=== PATIENT | male | born 1950 | race Caucasian/White ===

== ENCOUNTER 2021-06-12 13:52 | Inpatient (IN) | payer MEDICARE, OTHER ==
[2021-06-12] MEDS ORDERED: Sodium Chloride 0.9% 1,000 ML IV ONE (16:48)
[2021-06-12] MEDS ORDERED: Ketorolac 30 MG/ML SDV IVPUSH ONE (16:49)
[2021-06-12] MEDS ORDERED: Acetaminophen 500 MG Tab PO ONE (16:49)
[2021-06-12 17:59] LABS: BLOOD UREA NITROGEN,BUN 13 mg/dL (7.0-18.0); CARBON DIOXIDE,CO2 26.7 mmol/L (21.0-32.0); CHLORIDE,CL 100 mmol/L (98-107); GLUCOSE RANDOM 125 mg/dL (74-106); POTASSIUM,K 3.5 mmol/L (3.5-5.1); SODIUM,NA 137 mmol/L (136-148)
--- NOTE | 2021-06-12 18:15 | PCM.EKG ---
#1 Interpretation EKG Interpretation Comments: EKG done 06/12/2021 at 6:07 PM shows a sinus rhythm with a heart rate of 79 a MT of 177 QT of 505 ms and a QRS axis of 88. There is a prolonged QT interval with borderline right axis deviation and possible left atrial enlargement. There is no prior for comparison. Impression no obvious acute injury
[2021-06-12 18:28] LABS: CORONAVIRUS COVID-19 NAA POSITIVE (NEGATIVE); INFLUENZA A NAA NEGATIVE (NEGATIVE); INFLUENZA B NAA NEGATIVE (NEGATIVE)
[2021-06-12] MEDS ORDERED: Iopamidol 755 MG/ML 500 ML Multipack Bottle IVPUSH STA (18:43)
--- NOTE | 2021-06-12 19:27 | CT ---
INDICATION: Hypoxia, 3 weeks post COVID. TECHNIQUE: IV contrast-enhanced CT chest, pulmonary embolism protocol. 100 mL [id number] injected. FINDINGS: There is a small amount of pulmonary embolus in a few segmental and subsegmental pulmonary arteries in the right upper lobe. The RV/LV ratio is normal. Fairly extensive, peripheral predominant area irregular areas of consolidation and to lesser degree ground-glass compatible with COVID-19 pneumonia. Mild bilateral hilar and mediastinal adenopathy is likely reactive. Trace bilateral pleural effusions. IMPRESSION: 1. Small volume right upper lobe pulmonary emboli. No evidence for right heart strain. 2. Fairly extensive COVID-19 pneumonia. Findings called to the ED at 7:25 p.m. on 06/12/2021. Please note that all CT scans at this facility use dose modulation, iterative reconstruction, and/or weight-based dosing when appropriate to reduce radiation dose to as low as reasonably achievable. Dictated by Petr Lee MD @ 06/12/2021 7:25:45 PM (Electronically Signed)
[2021-06-12] MEDS ORDERED: Heparin Sodium 5,000 Units/ML Vial IVPUSH ONE (19:46)
[2021-06-12] MEDS ORDERED: Dexamethasone 10 MG/ML SDV IVPUSH ONE (20:12)
[2021-06-12] MEDS ORDERED: REMDESIVIR 200 MG in Sodium Chloride 0.9% 250 ML IV ONE (20:13)
[2021-06-12] MEDS ORDERED: Heparin Sodium/0.45% NaCl 500 ML IV SCH (20:15)
--- NOTE | 2021-06-12 20:15 | EDM.PDOC ---
ED HPI GENERAL MEDICAL PROBLEM - General Chief Complaint: Respiratory Problem Stated Complaint: COUGHING,LETHARGIC Time Seen by Provider: 06/12/21 14:00 Source of Information: Reports: Patient History Limitations: Reports: No Limitations - History of Present Illness INITIAL COMMENTS - FREE TEXT/NARRATIVE: HISTORY AND PHYSICAL: History of present illness: Patient is an otherwise healthy 70-year-old male who presents emergency room today with concern of possible COVID-19 infection and worsening shortness of breath over the past 3 to 4 days. Patient states that he has been sick with Covid-like symptoms for 3 to 4 weeks and states that he has not been getting better. Patient states now over the past several days, he has had worsening fatigue, decreased appetite, and states that he has been significantly more short of breath, especially with exertion. Patient states that he is having a harder time performing his ADLs as he states that he does become more short of breath with exertion and states that he has to stop frequently to sit down and take deep breaths. Patient is here with his at bedside who also agrees that she was concerned about patient more over the past 2 days than she has been since onset of symptoms. Patient states that he does not have any health history and is not on any prescription medications. Patient also notes loss of taste and smell. Patient states that he is not vaccinated for COVID-19. Patient denies fever, chills, chest pain,. Denies headache, neck stiff ness, change in vision, syncope, or near syncope. Denies vomiting, abdominal pain, diarrhea, constipation, or dysuria. Has not noted any blood in urine or stool. Review of systems: As per history of present illness and below otherwise all systems reviewed and negative. Past medical history: As per history of present illness and as reviewed below otherwise noncontributory. Surgical history: As per history of present illness and as reviewed below otherwise no ncontributory. Social history: See social history for further information Family history: As per history of present illness and as reviewed below otherwise noncontributory. Physical exam: General: Patient is alert, oriented, and in no acute distress. Patient sitting comfortably on exam table. Patient is hypoxic 85% on room air. Placed on 3 L nasal cannula and 92%. Otherwise, vitally stable and reviewed by me. HEENT: Atraumatic, normocephalic, pupils equal and reactive bilaterally, negative for conjunctival pallor or scleral icterus, mucous membranes moist, throat clear, neck supple, nontender, trachea midline. No drooling or trismus noted. No meningeal signs. No hot potato voice noted. Lungs: Dry cough on exam. Otherwise, clear to auscultation, breath sounds equal bilaterally, chest nontender. Heart: S1S2, regular rate and rhythm without overt murmur Abdomen: Soft, nondistended, nontender. Negative for masses or hepatosplenomegaly. Negative for costovertebral tenderness. Pelvis: Stable nontender. Genitourinary: Deferred. Rectal: Deferred. Skin: Intact, warm, dry. No lesions or rashes noted. Extremities: Atraumatic, negative for cords or calf pain. Neurovascular unremarkable. Neuro: Awake, alert, oriented. Cranial nerves II through XII unremarkable. Cerebellum unremarkable. Motor and sensory unremarkable throughout. Exam nonfocal. Medical Decision Making: Patient is an otherwise healthy 70-year-old male who presents emergency room today with concern of worsening shortness of breath and Covid symptoms for the past 3 weeks with worsening shortness of breath over the past 2 to 3 days. Upon arrival to the ED, patient is hypoxic 85% on room air. He was placed on 3 L nasal cannula and about 92 to 93%. He is otherwise vitally stable and breathing comfortably on exam. He does have a dry cough on exam, otherwise exam is unremarkable. At this time, will provide therapeutics, obtain cardiac evaluation, COVID-19 swab. Being that patient has been having COVID-19 symptoms for the past 3 to 4 weeks with now worsening shortness of breath over the past 2 days, will obtain angiography of chest for possible pulmonary embolism. Dr. Celis's dictation for specific EKG interpretation. Otherwise, normal sinus rhythm without STEMI. Patient does have prolonged QT interval with right axis deviation CBC does show thrombocytosis of 515, otherwise mild derangements of CBC unremarkable. CMP does show mild elevation of glucose at 125. AST and ALT mildly elevated at 81 and 93 respectively. Troponin negative. BNP within normal limits. COVID-19 is positive. Angiography of the chest shows small volume right upper lobe pulmonary embolism with no evidence for right heart strain. Fairly extensive COVID-19 pneumonia. Upon reevaluation of patient, he remains vitally stable on 3 L nasal cannula. I did call and speak to the hospitalist on-call, Dr. Camargo, and thoroughly discussed patient's case. Will admit inpatient to Dr. Camargo. Voices understanding and is agreeable to plan of care. Denies any further questions or concerns at this time. Diagnostics: EKG, CBC, CMP, angiography chest, troponin, COVID-19/influenza, BNP Therapeutics: Normal saline, Toradol, Tylenol, Lovenox, Decadron, remdesivir Impression: COVID-19 viral infection with hypoxia Pulmonary embolism, right upper lobe, subsegmental Plan: Admit to inpatient to Dr. Camargo, hospitalist Definitive disposition and diagnosis as appropriate pending reevaluation and review of above. - Related Data Allergies Allergy/AdvReac Type Severity Reaction Status Date / Time No Known Allergies Allergy Verified 06/12/21 22:08 Home Meds: Home Meds . [No Known Home Meds] 06/12/21 [History] Past Medical History - Past Health History Medical/Surgical History: Denies Medical/Surgical History Social & Family History - Tobacco Use Tobacco Use Status *Q: Former Tobacco User Used Tobacco, but Quit: Yes Month/Year Tobacco Last Used: 07/1989 - Caffeine Use Caffeine Use: Reports: Coffee - Alcohol Use Days Per Week of Alcohol Use: 1 Number of Drinks Per Day: 2 Total Drinks Per Week: 2 - Recreational Drug Use Recreational Drug Use: No ED ROS GENERAL - Review of Systems Review Of Systems: Comprehensive ROS is negative, except as noted in HPI. ED EXAM, GENERAL - Physical Exam Exam: See Below (see dictation) Course - Vital Signs Last Recorded V/S: Last Vital Signs Temp 97 F 06/12/21 18:27 Pulse 79 06/12/21 20:32 Resp 20 06/12/21 18:27 BP 125/67 06/12/21 20:32 Pulse Ox 93 L 06/12/21 20:32 - Orders/Labs/Meds Orders: Active Orders 24 hr Category Date Time Status Cardiac Monitoring [RC] . DIRECTED Care 06/12/21 16:48 Active BILIRUBIN DIRECT [CHEM] DAILY Lab 06/13/21 20:15 Ordered BILIRUBIN DIRECT [CHEM] DAILY Lab 06/14/21 20:15 Ordered BILIRUBIN DIRECT [CHEM] DAILY Lab 06/15/21 20:15 Ordered BILIRUBIN DIRECT [CHEM] DAILY Lab 06/16/21 20:15 Ordered COMPREHENSIVE METABOLIC PN,CMP [CHEM] DAILY Lab 06/13/21 20:15 Ordered COMPREHENSIVE METABOLIC PN,CMP [CHEM] DAILY Lab 06/14/21 20:15 Ordered COMPREHENSIVE METABOLIC PN,CMP [CHEM] DAILY Lab 06/15/21 20:15 Ordered COMPREHENSIVE METABOLIC PN,CMP [CHEM] DAILY Lab 06/16/21 20:15 Ordered Medication Orders Enoxaparin Sodium (Enoxaparin 100 Mg/1 Ml Syringe) 90 mg SUBCUT Q12HR JIMY Labs: Laboratory Tests 06/12/21 06/12/21 06/12/21 Range/Units 17:24 17:24 17:24 WBC 10.91 (4.0-11.0) K/uL RBC 4.43 L (4.50-5.90) M/uL Hgb 13.3 (13.0-17.0) g/dL Hct 38.4 (38.0-50.0) % MCV 86.7 (80.0-98.0) fL MCH 30.0 (27.0-32.0) pg MCHC 34.6 (31.0-37.0) g/dL RDW Std Deviation 41.5 (28.0-62.0) fl RDW Coeff of Aruna 13 (11.0-15.0) % Plt Count 515 H (150-400) K/uL MPV 10.00 (7.40-12.00) fL Neut % (Auto) 71.5 (48.0-80.0) % Lymph % (Auto) 13.7 L (16.0-40.0) % [place] % (Auto) 11.6 (0.0-15.0) % Eos % (Auto) 2.7 (0.0-7.0) % Baso % (Auto) 0.5 (0.0-1.5) % Neut # (Auto) 7.8 H (1.4-5.7) K/uL Lymph # (Auto) 1.5 (0.6-2.4) K/uL [place] # (Auto) 1.3 H (0.0-0.8) K/uL Eos # (Auto) 0.3 (0.0-0.7) K/uL Baso # (Auto) 0.1 (0.0-0.1) K/uL Nucleated RBC % 0.0 /100WBC Nucleated RBCs # 0 K/uL APTT (18.6-31.3) SEC Sodium 137 (136-148) mmol/L Potassium 3.5 (3.5-5.1) mmol/L Chloride 100 (98-107) mmol/L Carbon Dioxide 26.7 (21.0-32.0) mmol/L BUN 13 (7.0-18.0) mg/dL Creatinine 0.9 (0.8-1.3) mg/dL Est Cr Clr Drug Dosing 74.94 mL/min Estimated GFR (MDRD) > 60.0 ml/min Glucose 125 H (74-106) mg/dL Calcium 8.7 (8.5-10.1) mg/dL Total Bilirubin 0.9 (0.2-1.0) mg/dL AST 81 H (15-37) IU/L ALT 93 H (14-63) IU/L Alkaline Phosphatase 67 (46-116) U/L Troponin I < 0.050 (0.000-0.056) ng/mL B-Natriuretic Peptide 34 (<100) PG/ML Total Protein 7.4 (6.4-8.2) g/dL Albumin 2.1 L (3.4-5.0) g/dL Globulin 5.3 H (2.6-4.0) g/dL Albumin/Globulin Ratio 0.4 L (0.9-1.6) Influenza Type A RNA (NEGATIVE) Influenza Type B RNA (NEGATIVE) SARS-CoV-2 RNA (TIARRA) (NEGATIVE) 06/12/21 06/12/21 Range/Units 17:24 17:42 WBC (4.0-11.0) K/uL RBC (4.50-5.90) M/uL Hgb (13.0-17.0) g/dL Hct (38.0-50.0) % MCV (80.0-98.0) fL MCH (27.0-32.0) pg MCHC (31.0-37.0) g/dL RDW Std Deviation (28.0-62.0) fl RDW Coeff of Aruna (11.0-15.0) % Plt Count (150-400) K/uL MPV (7.40-12.00) fL Neut % (Auto) (48.0-80.0) % Lymph % (Auto) (16.0-40.0) % [place] % (Auto) (0.0-15.0) % Eos % (Auto) (0.0-7.0) % Baso % (Auto) (0.0-1.5) % Neut # (Auto) (1.4-5.7) K/uL Lymph # (Auto) (0.6-2.4) K/uL [place] # (Auto) (0.0-0.8) K/uL Eos # (Auto) (0.0-0.7) K/uL Baso # (Auto) (0.0-0.1) K/uL Nucleated RBC % /100WBC Nucleated RBCs # K/uL APTT 27.5 (18.6-31.3) SEC Sodium (136-148) mmol/L Potassium (3.5-5.1) mmol/L Chloride (98-107) mmol/L Carbon Dioxide (21.0-32.0) mmol/L BUN (7.0-18.0) mg/dL Creatinine (0.8-1.3) mg/dL Est Cr Clr Drug Dosing mL/min Estimated GFR (MDRD) ml/min Glucose (74-106) mg/dL Calcium (8.5-10.1) mg/dL Total Bilirubin (0.2-1.0) mg/dL AST (15-37) IU/L ALT (14-63) IU/L Alkaline Phosphatase (46-116) U/L Troponin I (0.000-0.056) ng/mL B-Natriuretic Peptide (<100) PG/ML Total Protein (6.4-8.2) g/dL Albumin (3.4-5.0) g/dL Globulin (2.6-4.0) g/dL Albumin/Globulin Ratio (0.9-1.6) Influenza Type A RNA NEGATIVE (NEGATIVE) Influenza Type B RNA NEGATIVE (NEGATIVE) SARS-CoV-2 RNA (TIARRA) POSITIVE H (NEGATIVE) Meds: Medications Generic Name Dose Route Start Last Admin Trade Name Freq PRN Reason Stop Dose Admin Enoxaparin Sodium 90 mg 06/12/21 21:00 Enoxaparin 100 Mg/1 Ml Syringe SUBCUT Q12HR JIMY Discontinued Medications Generic Name Dose Route Start Last Admin Trade Name Brown PRN Reason Stop Dose Admin Acetaminophen 1,000 mg 06/12/21 16:49 06/12/21 18:02 Acetaminophen 500 Mg Tab PO 06/12/21 16:50 Not Given ONETIME ONE Dexamethasone 10 mg 06/12/21 20:12 06/12/21 20:21 Dexamethasone 10 Mg/Ml Sdv IVPUSH 06/12/21 20:13 10 mg ONETIME ONE Administration Enoxaparin Sodium 92 mg 06/12/21 20:19 06/12/21 20:29 Enoxaparin 100 Mg/1 Ml Syringe SUBCUT 06/12/21 20:20 92 mg ONETIME ONE Administration Heparin Sodium (Porcine) 5,000 units 06/12/21 19:46 Heparin Sodium 5,000 Units/Ml Vial IVPUSH 06/12/21 19:47 ONETIME ONE Protocol Sodium Chloride 1,000 mls @ 999 mls/hr 06/12/21 16:48 06/12/21 17:33 Normal Saline IV 06/12/21 17:48 999 mls/hr BOLUS ONE Administration Heparin Sodium/Sodium Chloride 500 mls @ 25.655 mls/hr 06/12/21 20:15 Heparin 25,000 Units In 1/2 Ns 500 Ml IV TITRATE JIMY Protocol 14 UNITS/KG/HR Remdesivir 200 mg/ Sodium 250 mls @ 250 mls/hr 06/12/21 20:13 06/12/21 21:21 Chloride IV 06/12/21 20:14 250 mls/hr ONETIME ONE Administration Iopamidol 100 ml 06/12/21 18:43 06/12/21 18:44 Iopamidol 755 Mg/Ml 500 Ml Multipack Bottle IVPUSH 06/12/21 18:44 100 ml ONETIME STA Administration Ketorolac Tromethamine 30 mg 06/12/21 16:49 06/12/21 18:02 Ketorolac 30 Mg/Ml Sdv IVPUSH 06/12/21 16:50 Not Given ONETIME ONE Departure - Departure Time of Disposition: 22:16 Disposition: Admitted As Inpatient 67 Clinical Impression: COVID-19 virus infection, Hypoxia Pulmonary embolism Qualifiers: Pulmonary embolism type: unspecified Chronicity: acute Acute cor pulmonale presence: without acute cor pulmonale Qualified Code(s): I26.99 - Other pulmonary embolism without acute cor pulmonale - Discharge Information Sepsis Event Note (ED) - Focused Exam Vital Signs: Vital Signs Temp Temp Pulse Resp BP Pulse Ox 06/12/21 18:27 97 F 85 20 133/80 95 06/12/21 18:02 97.2 F 06/12/21 17:37 97.2 F 06/12/21 16:59 86 122/71 93 L 06/12/21 14:52 96.1 F L 87 26 H 120/67 - My Orders Last 24 Hours: My Active Orders 06/12/21 16:48 Cardiac Monitoring [RC] . DIRECTED 06/13/21 20:15 BILIRUBIN DIRECT [CHEM] DAILY COMPREHENSIVE METABOLIC PN,CMP [CHEM] DAILY 06/14/21 20:15 BILIRUBIN DIRECT [CHEM] DAILY COMPREHENSIVE METABOLIC PN,CMP [CHEM] DAILY 06/15/21 20:15 BILIRUBIN DIRECT [CHEM] DAILY COMPREHENSIVE METABOLIC PN,CMP [CHEM] DAILY 06/16/21 20:15 BILIRUBIN DIRECT [CHEM] DAILY COMPREHENSIVE METABOLIC PN,CMP [CHEM] DAILY - Assessment/Plan Last 24 Hours: My Active Orders 06/12/21 16:48 Cardiac Monitoring [RC] . DIRECTED 06/13/21 20:15 BILIRUBIN DIRECT [CHEM] DAILY COMPREHENSIVE METABOLIC PN,CMP [CHEM] DAILY 06/14/21 20:15 BILIRUBIN DIRECT [CHEM] DAILY COMPREHENSIVE METABOLIC PN,CMP [CHEM] DAILY 06/15/21 20:15 BILIRUBIN DIRECT [CHEM] DAILY COMPREHENSIVE METABOLIC PN,CMP [CHEM] DAILY 06/16/21 20:15 BILIRUBIN DIRECT [CHEM] DAILY COMPREHENSIVE METABOLIC PN,CMP [CHEM] DAILY
[2021-06-12] MEDS ORDERED: Enoxaparin 100 MG/1 ML Syringe SUBCUT ONE (20:19)
[2021-06-12] MEDS ORDERED: Enoxaparin 100 MG/1 ML Syringe SUBCUT SCH (21:00)
--- NOTE | 2021-06-12 23:57 | PCM.HP.2 ---
H&P History of Present Illness - General Date of Service: 06/12/21 Admit Problem/Dx: Admission Diagnosis/Problem Admission Diagnosis/Problem Respiratory failure with hypoxia and hypercapnia - History of Present Illness Initial Comments - Free Text/Narative: Patient is a 70-year-old obese male with a h/o JUDAH who presented to the emergency room today with concern of possible COVID-19 infection and worsening shortness of breath over the past 3 to 4 days. Patient states that he has been sick with flu like symptoms for at least 16 days. He states that he has not been getting better. Patient states now over the past several days, he has had worsening fatigue, decreased appetite, and states that he has been significantly more short of breath, especially with exertion. Patient states that he is having a harder time performing his ADLs as he states that he does become more short of breath with exertion and states that he has to stop frequently to sit down and take deep breaths. He also complains of a nagging dry cough. He frequently goes into coughing spells and these tend to last several minutes. He has had no fevers or chills. No known sick contacts. His has no symptoms either. Pt is unvaccinated. - Related Data Allergies/Adverse Reactions: Allergies Allergy/AdvReac Type Severity Reaction Status Date / Time No Known Allergies Allergy Verified 06/12/21 22:08 Home Medications: Home Meds . [No Known Home Meds] 06/12/21 [History] Past Medical History - Past Health History Medical/Surgical History: Denies Medical/Surgical History HEENT History: Reports: Impaired Vision Respiratory History: Reports: Sleep Apnea - Past Surgical History HEENT Surgical History: Reports: Oral Surgery GI Surgical History: Reports: Colonoscopy Social & Family History - Tobacco Use Tobacco Use Status *Q: Former Tobacco User Used Tobacco, but Quit: Yes Month/Year Tobacco Last Used: 1989 Second Hand Smoke Exposure: No - Caffeine Use Caffeine Use: Reports: Coffee - Alcohol Use Days Per Week of Alcohol Use: 1 Number of Drinks Per Day: 2 Total Drinks Per Week: 2 - Recreational Drug Use Recreational Drug Use: No H&P Review of Systems - Review of Systems: Review Of Systems: See Below Exam - Exam Exam: See Below - Vital Signs Vital Signs: Last Vital Signs Temp 96.8 F L 06/12/21 22:09 Pulse 84 06/12/21 22:09 Resp 20 06/12/21 22:09 BP 158/81 H 06/12/21 22:09 Pulse Ox 91 L 06/12/21 22:09 Weight: 203 lb 12.8 oz - Exam Physical Exam Comments:: General: Obese elderly male. In no distress CVS: S1S2 appreciated. RRR lungs: Diminished bilaterally with no rales or wheezes. pa: soft, obese, non tender. Bowel sounds present ext: no clubbing, cyanosis or edema neuro: no focal deficits. - Patient Data Lab Results Last 24 hrs: Laboratory Results - last 24 hr 06/12/21 06/12/21 06/12/21 Range/Units 17:24 17:24 17:24 WBC 10.91 (4.0-11.0) K/uL RBC 4.43 L (4.50-5.90) M/uL Hgb 13.3 (13.0-17.0) g/dL Hct 38.4 (38.0-50.0) % MCV 86.7 (80.0-98.0) fL MCH 30.0 (27.0-32.0) pg MCHC 34.6 (31.0-37.0) g/dL RDW Std Deviation 41.5 (28.0-62.0) fl RDW Coeff of Aruna 13 (11.0-15.0) % Plt Count 515 H (150-400) K/uL MPV 10.00 (7.40-12.00) fL Neut % (Auto) 71.5 (48.0-80.0) % Lymph % (Auto) 13.7 L (16.0-40.0) % [place] % (Auto) 11.6 (0.0-15.0) % Eos % (Auto) 2.7 (0.0-7.0) % Baso % (Auto) 0.5 (0.0-1.5) % Neut # (Auto) 7.8 H (1.4-5.7) K/uL Lymph # (Auto) 1.5 (0.6-2.4) K/uL [place] # (Auto) 1.3 H (0.0-0.8) K/uL Eos # (Auto) 0.3 (0.0-0.7) K/uL Baso # (Auto) 0.1 (0.0-0.1) K/uL Nucleated RBC % 0.0 /100WBC Nucleated RBCs # 0 K/uL APTT (18.6-31.3) SEC Sodium 137 (136-148) mmol/L Potassium 3.5 (3.5-5.1) mmol/L Chloride 100 (98-107) mmol/L Carbon Dioxide 26.7 (21.0-32.0) mmol/L BUN 13 (7.0-18.0) mg/dL Creatinine 0.9 (0.8-1.3) mg/dL Est Cr Clr Drug Dosing 74.94 mL/min Estimated GFR (MDRD) > 60.0 ml/min Glucose 125 H (74-106) mg/dL Calcium 8.7 (8.5-10.1) mg/dL Total Bilirubin 0.9 (0.2-1.0) mg/dL AST 81 H (15-37) IU/L ALT 93 H (14-63) IU/L Alkaline Phosphatase 67 (46-116) U/L Troponin I < 0.050 (0.000-0.056) ng/mL B-Natriuretic Peptide 34 (<100) PG/ML Total Protein 7.4 (6.4-8.2) g/dL Albumin 2.1 L (3.4-5.0) g/dL Globulin 5.3 H (2.6-4.0) g/dL Albumin/Globulin Ratio 0.4 L (0.9-1.6) Influenza Type A RNA (NEGATIVE) Influenza Type B RNA (NEGATIVE) SARS-CoV-2 RNA (TIARRA) (NEGATIVE) 06/12/21 06/12/21 Range/Units 17:24 17:42 WBC (4.0-11.0) K/uL RBC (4.50-5.90) M/uL Hgb (13.0-17.0) g/dL Hct (38.0-50.0) % MCV (80.0-98.0) fL MCH (27.0-32.0) pg MCHC (31.0-37.0) g/dL RDW Std Deviation (28.0-62.0) fl RDW Coeff of Aruna (11.0-15.0) % Plt Count (150-400) K/uL MPV (7.40-12.00) fL Neut % (Auto) (48.0-80.0) % Lymph % (Auto) (16.0-40.0) % [place] % (Auto) (0.0-15.0) % Eos % (Auto) (0.0-7.0) % Baso % (Auto) (0.0-1.5) % Neut # (Auto) (1.4-5.7) K/uL Lymph # (Auto) (0.6-2.4) K/uL [place] # (Auto) (0.0-0.8) K/uL Eos # (Auto) (0.0-0.7) K/uL Baso # (Auto) (0.0-0.1) K/uL Nucleated RBC % /100WBC Nucleated RBCs # K/uL APTT 27.5 (18.6-31.3) SEC Sodium (136-148) mmol/L Potassium (3.5-5.1) mmol/L Chloride (98-107) mmol/L Carbon Dioxide (21.0-32.0) mmol/L BUN (7.0-18.0) mg/dL Creatinine (0.8-1.3) mg/dL Est Cr Clr Drug Dosing mL/min Estimated GFR (MDRD) ml/min Glucose (74-106) mg/dL Calcium (8.5-10.1) mg/dL Total Bilirubin (0.2-1.0) mg/dL AST (15-37) IU/L ALT (14-63) IU/L Alkaline Phosphatase (46-116) U/L Troponin I (0.000-0.056) ng/mL B-Natriuretic Peptide (<100) PG/ML Total Protein (6.4-8.2) g/dL Albumin (3.4-5.0) g/dL Globulin (2.6-4.0) g/dL Albumin/Globulin Ratio (0.9-1.6) Influenza Type A RNA NEGATIVE (NEGATIVE) Influenza Type B RNA NEGATIVE (NEGATIVE) SARS-CoV-2 RNA (TIARRA) POSITIVE H (NEGATIVE) Result Diagrams: 06/13/21 05:53 06/13/21 05:53 Sepsis Event Note - Focused Exam Vital Signs: Vital Signs Temp Temp Pulse Resp BP Pulse Ox 06/12/21 22:09 96.8 F L 84 20 158/81 H 91 L 06/12/21 20:32 79 125/67 93 L 06/12/21 18:27 97 F 85 20 133/80 95 06/12/21 18:02 97.2 F 06/12/21 17:37 97.2 F 06/12/21 16:59 86 122/71 93 L 06/12/21 14:52 96.1 F L 87 26 H 120/67 - Problem List (1) Acute respiratory failure SNOMED Code(s): 52606477 ICD Code: J96.00 - ACUTE RESPIRATORY FAILURE, UNSP W HYPOXIA OR HYPERCAPNIA Status: Acute Current Visit: Yes (2) COVID-19 virus infection SNOMED Code(s): 088186759 ICD Code: U07.1 - COVID-19 Status: Acute Current Visit: Yes (3) Pulmonary embolism SNOMED Code(s): 65170862 ICD Code: I26.99 - OTHER PULMONARY EMBOLISM WITHOUT ACUTE COR PULMONALE Status: Acute Current Visit: Yes Qualifiers: Pulmonary embolism type: unspecified Chronicity: acute Acute cor pulmonale presence: without acute cor pulmonale Qualified Code(s): I26.99 - O ther pulmonary embolism without acute cor pulmonale (4) JUDAH on CPAP SNOMED Code(s): 83136418 ICD Code: G47.33 - OBSTRUCTIVE SLEEP APNEA (ADULT) (PEDIATRIC); Z99.89 - DEPENDENCE ON OTHER ENABLING MACHINES AND DEVICES Status: Acute Current Visit: Yes (5) Obesity (BMI 30.0-34.9) SNOMED Code(s): 764064327028543 ICD Code: E66.9 - OBESITY, UNSPECIFIED Status: Acute Current Visit: Yes Problem List Initiated/Reviewed/Updated: Yes Orders Last 24hrs: Active Orders 24 hr Category Date Time Status Admission Status [Patient Status] [ADT] Stat ADT 06/12/21 20:20 Active Patient Status Manage Transfer [TRANSFER] Routine ADT 06/12/21 20:38 Active Cardiac Monitoring [RC] . DIRECTED Care 06/12/21 16:48 Active Regular Diet [DIET] Diet 06/13/21 Breakfast Active BILIRUBIN DIRECT [CHEM] DAILY Lab 06/13/21 20:15 Ordered BILIRUBIN DIRECT [CHEM] DAILY Lab 06/14/21 20:15 Ordered BILIRUBIN DIRECT [CHEM] DAILY Lab 06/15/21 20:15 Ordered BILIRUBIN DIRECT [CHEM] DAILY Lab 06/16/21 20:15 Ordered COMPREHENSIVE METABOLIC PN,CMP [CHEM] DAILY Lab 06/13/21 20:15 Ordered COMPREHENSIVE METABOLIC PN,CMP [CHEM] DAILY Lab 06/14/21 20:15 Ordered COMPREHENSIVE METABOLIC PN,CMP [CHEM] DAILY Lab 06/15/21 20:15 Ordered COMPREHENSIVE METABOLIC PN,CMP [CHEM] DAILY Lab 06/16/21 20:15 Ordered Enoxaparin [Lovenox] Med 06/13/21 09:00 Active 90 mg SUBCUT Q12HR Resuscitation Status Routine Resus Stat 06/12/21 20:42 Ordered Medication Orders Enoxaparin Sodium (Enoxaparin 100 Mg/1 Ml Syringe) 90 mg SUBCUT Q12HR JIMY Acute respiratory failure due to Covid 19 pneumonia Admit to the medical floor Treat pt with Decadron x 10 days, duoneb, incentive spirometer, encourage proning. Will not give Remdesivir due the time between onset of symptoms to p resentation. anticoagulation oxygen supplementation Pulmonary embolism on lovenox 1 mg/kg SQ Q 12 JUDAH on CPAP at home Will have bring in his home CPAP device. Obesity Pt will need lifestyle modification changes after this acute hospitalization.
[2021-06-13] MEDS ORDERED: Albuterol 8 GM Inhaler INH PRN (07:12)
[2021-06-13 07:50] LABS: BLOOD UREA NITROGEN,BUN 13 mg/dL (7.0-18.0); CHLORIDE,CL 106 mmol/L (98-107); GLUCOSE RANDOM 179 mg/dL (74-106); POTASSIUM,K 4.8 mmol/L (3.5-5.1); SODIUM,NA 141 mmol/L (136-148)
[2021-06-13] MEDS: Enoxaparin 100 MG/1 ML Syringe SUBCUT SCH ×2 (08:08→20:32)
[2021-06-13] MEDS: Albuterol/Ipratropium 3.0-0.5 MG/3 ML Neb Soln NEB SCH ×4 (10:45→18:21)
--- NOTE | 2021-06-13 15:59 | PCM.PN ---
- General Info Date of Service: 06/13/21 Subjective Update: Pt feels a little better today but still weak. He is still requiring 10 L oxygen by NC to keeps his sats > 90% - Patient Data Vitals - Most Recent: Last Vital Signs Temp 96.8 F L 06/13/21 11:01 Pulse 88 06/13/21 11:01 Resp 20 06/13/21 11:01 BP 112/63 06/13/21 11:01 Pulse Ox 91 L 06/13/21 11:01 Weight - Most Recent: 203 lb 12.8 oz I&O - Last 24 Hours: Intake & Output 06/13/21 06/13/21 06/13/21 06:59 14:59 22:59 Intake Total 50 Output Total 1 Balance 49 Lab Results Last 24 Hours: Laboratory Results - last 24 hr 06/12/21 06/12/21 06/12/21 Range/Units 17:24 17:24 17:24 WBC 10.91 (4.0-11.0) K/uL RBC 4.43 L (4.50-5.90) M/uL Hgb 13.3 (13.0-17.0) g/dL Hct 38.4 (38.0-50.0) % MCV 86.7 (80.0-98.0) fL MCH 30.0 (27.0-32.0) pg MCHC 34.6 (31.0-37.0) g/dL RDW Std Deviation 41.5 (28.0-62.0) fl RDW Coeff of Aruna 13 (11.0-15.0) % Plt Count 515 H (150-400) K/uL MPV 10.00 (7.40-12.00) fL Neut % (Auto) 71.5 (48.0-80.0) % Lymph % (Auto) 13.7 L (16.0-40.0) % Coles % (Auto) 11.6 (0.0-15.0) % Eos % (Auto) 2.7 (0.0-7.0) % Baso % (Auto) 0.5 (0.0-1.5) % Neut # (Auto) 7.8 H (1.4-5.7) K/uL Lymph # (Auto) 1.5 (0.6-2.4) K/uL Coles # (Auto) 1.3 H (0.0-0.8) K/uL Eos # (Auto) 0.3 (0.0-0.7) K/uL Baso # (Auto) 0.1 (0.0-0.1) K/uL Add Manual Diff Neutrophils % (Manual) (48.0-80.0) % Lymphocytes % (Manual) (16.0-40.0) % Monocytes % (Manual) (0.0-15.0) % Eosinophils % (Manual) (0.0-7.0) % Nucleated RBC % 0.0 /100WBC Absolute Seg Neuts (1.4-5.7) Lymphocytes # (Manual) (0.6-2.4) Monocytes # (Manual) (0.0-0.8) Eosinophils # (Manual) (0.0-0.7) Nucleated RBCs # 0 K/uL APTT (18.6-31.3) SEC Sodium 137 (136-148) mmol/L Potassium 3.5 (3.5-5.1) mmol/L Chloride 100 (98-107) mmol/L Carbon Dioxide 26.7 (21.0-32.0) mmol/L BUN 13 (7.0-18.0) mg/dL Creatinine 0.9 (0.8-1.3) mg/dL Est Cr Clr Drug Dosing 74.94 mL/min Estimated GFR (MDRD) > 60.0 ml/min Glucose 125 H (74-106) mg/dL Calcium 8.7 (8.5-10.1) mg/dL Total Bilirubin 0.9 (0.2-1.0) mg/dL Direct Bilirubin (0.0-0.5) mg/dL AST 81 H (15-37) IU/L ALT 93 H (14-63) IU/L Alkaline Phosphatase 67 (46-116) U/L Troponin I < 0.050 (0.000-0.056) ng/mL C-Reactive Protein (0.00-0.90) mg/dL B-Natriuretic Peptide 34 (<100) PG/ML Total Protein 7.4 (6.4-8.2) g/dL Albumin 2.1 L (3.4-5.0) g/dL Globulin 5.3 H (2.6-4.0) g/dL Albumin/Globulin Ratio 0.4 L (0.9-1.6) Influenza Type A RNA (NEGATIVE) Influenza Type B RNA (NEGATIVE) SARS-CoV-2 RNA (TAIRRA) (NEGATIVE) 06/12/21 06/12/21 06/13/21 Range/Units 17:24 17:42 05:53 WBC 6.75 (4.0-11.0) K/uL RBC 4.26 L (4.50-5.90) M/uL Hgb 12.8 L (13.0-17.0) g/dL Hct 37.2 L (38.0-50.0) % MCV 87.3 (80.0-98.0) fL MCH 30.0 (27.0-32.0) pg MCHC 34.4 (31.0-37.0) g/dL RDW Std Deviation 41.8 (28.0-62.0) fl RDW Coeff of Aruna 13 (11.0-15.0) % Plt Count 562 H (150-400) K/uL MPV 10.30 (7.40-12.00) fL Neut % (Auto) (48.0-80.0) % Lymph % (Auto) (16.0-40.0) % Coles % (Auto) (0.0-15.0) % Eos % (Auto) (0.0-7.0) % Baso % (Auto) (0.0-1.5) % Neut # (Auto) (1.4-5.7) K/uL Lymph # (Auto) (0.6-2.4) K/uL Coles # (Auto) (0.0-0.8) K/uL Eos # (Auto) (0.0-0.7) K/uL Baso # (Auto) (0.0-0.1) K/uL Add Manual Diff YES Neutrophils % (Manual) 75 (48.0-80.0) % Lymphocytes % (Manual) 19 (16.0-40.0) % Monocytes % (Manual) 5 (0.0-15.0) % Eosinophils % (Manual) 1 (0.0-7.0) % Nucleated RBC % 0.0 /100WBC Absolute Seg Neuts 5.1 (1.4-5.7) Lymphocytes # (Manual) 1.3 (0.6-2.4) Monocytes # (Manual) 0.3 (0.0-0.8) Eosinophils # (Manual) 0.1 (0.0-0.7) Nucleated RBCs # 0 K/uL APTT 27.5 (18.6-31.3) SEC Sodium (136-148) mmol/L Potassium (3.5-5.1) mmol/L Chloride (98-107) mmol/L Carbon Dioxide (21.0-32.0) mmol/L BUN (7.0-18.0) mg/dL Creatinine (0.8-1.3) mg/dL Est Cr Clr Drug Dosing mL/min Estimated GFR (MDRD) ml/min Glucose (74-106) mg/dL Calcium (8.5-10.1) mg/dL Total Bilirubin (0.2-1.0) mg/dL Direct Bilirubin (0.0-0.5) mg/dL AST (15-37) IU/L ALT (14-63) IU/L Alkaline Phosphatase (46-116) U/L Troponin I (0.000-0.056) ng/mL C-Reactive Protein (0.00-0.90) mg/dL B-Natriuretic Peptide (<100) PG/ML Total Protein (6.4-8.2) g/dL Albumin (3.4-5.0) g/dL Globulin (2.6-4.0) g/dL Albumin/Globulin Ratio (0.9-1.6) Influenza Type A RNA NEGATIVE (NEGATIVE) Influenza Type B RNA NEGATIVE (NEGATIVE) SARS-CoV-2 RNA (TIARRA) POSITIVE H (NEGATIVE) 06/13/21 06/13/21 Range/Units 05:53 05:53 WBC (4.0-11.0) K/uL RBC (4.50-5.90) M/uL Hgb (13.0-17.0) g/dL Hct (38.0-50.0) % MCV (80.0-98.0) fL MCH (27.0-32.0) pg MCHC (31.0-37.0) g/dL RDW Std Deviation (28.0-62.0) fl RDW Coeff of Aruna (11.0-15.0) % Plt Count (150-400) K/uL MPV (7.40-12.00) fL Neut % (Auto) (48.0-80.0) % Lymph % (Auto) (16.0-40.0) % Coles % (Auto) (0.0-15.0) % Eos % (Auto) (0.0-7.0) % Baso % (Auto) (0.0-1.5) % Neut # (Auto) (1.4-5.7) K/uL Lymph # (Auto) (0.6-2.4) K/uL Coles # (Auto) (0.0-0.8) K/uL Eos # (Auto) (0.0-0.7) K/uL Baso # (Auto) (0.0-0.1) K/uL Add Manual Diff Neutrophils % (Manual) (48.0-80.0) % Lymphocytes % (Manual) (16.0-40.0) % Monocytes % (Manual) (0.0-15.0) % Eosinophils % (Manual) (0.0-7.0) % Nucleated RBC % /100WBC Absolute Seg Neuts (1.4-5.7) Lymphocytes # (Manual) (0.6-2.4) Monocytes # (Manual) (0.0-0.8) Eosinophils # (Manual) (0.0-0.7) Nucleated RBCs # K/uL APTT (18.6-31.3) SEC Sodium 141 (136-148) mmol/L Potassium 4.8 (3.5-5.1) mmol/L Chloride 106 (98-107) mmol/L Carbon Dioxide 27.0 (21.0-32.0) mmol/L BUN 13 (7.0-18.0) mg/dL Creatinine 0.9 (0.8-1.3) mg/dL Est Cr Clr Drug Dosing 74.94 mL/min Estimated GFR (MDRD) > 60.0 ml/min Glucose 179 H (74-106) mg/dL Calcium 8.8 (8.5-10.1) mg/dL Total Bilirubin 0.4 (0.2-1.0) mg/dL Direct Bilirubin 0.20 (0.0-0.5) mg/dL AST 53 H (15-37) IU/L ALT 80 H (14-63) IU/L Alkaline Phosphatase 66 (46-116) U/L Troponin I (0.000-0.056) ng/mL C-Reactive Protein 12.10 H (0.00-0.90) mg/dL B-Natriuretic Peptide (<100) PG/ML Total Protein 7.1 (6.4-8.2) g/dL Albumin 1.9 L (3.4-5.0) g/dL Globulin 5.2 H (2.6-4.0) g/dL Albumin/Globulin Ratio 0.4 L (0.9-1.6) Influenza Type A RNA (NEGATIVE) Influenza Type B RNA (NEGATIVE) SARS-CoV-2 RNA (TIARRA) (NEGATIVE) Med Orders - Current: Current Medications Albuterol (Albuterol 8 Gm Inhaler) 0 gm INH Q2H PRN PRN Reason: Dyspnea Albuterol/Ipratropium (Albuterol/Ipratropium 3.0-0.5 Mg/3 Ml Neb Soln) 3 ml NEB Q6HRRT [facility] Last Admin: 06/13/21 13:00 Dose: 3 ml Documented by: Baricitinib (Baricitinib 2 Mg Tab) 4 mg PO DAILY [facility] Last Admin: 06/13/21 11:02 Dose: 4 mg Documented by: Dexamethasone (Dexamethasone 4 Mg Tab) 6 mg PO Q24H [facility] Enoxaparin Sodium (Enoxaparin 100 Mg/1 Ml Syringe) 90 mg SUBCUT Q12HR [facility] Last Admin: 06/13/21 08:08 Dose: 90 mg Documented by: Remdesivir 100 mg/ Sodium (Chloride) 100 mls @ 100 mls/hr IV Q24H [facility] Stop: 06/16/21 21:59 Discontinued Medications Acetaminophen (Acetaminophen 500 Mg Tab) 1,000 mg PO ONETIME ONE Stop: 06/12/21 16:50 Last Admin: 06/12/21 18:02 Dose: Not Given Documented by: Albuterol/Ipratropium (Albuterol/Ipratropium 3.0-0.5 Mg/3 Ml Neb Soln) 3 ml NEB Q4HRRT [facility] Last Admin: 06/13/21 10:46 Dose: Not Given Documented by: Dexamethasone (Dexamethasone 10 Mg/Ml Sdv) 10 mg IVPUSH ONETIME ONE Stop: 06/12/21 20:13 Last Admin: 06/12/21 20:21 Dose: 10 mg Documented by: Enoxaparin Sodium (Enoxaparin 100 Mg/1 Ml Syringe) 92 mg SUBCUT ONETIME ONE Stop: 06/12/21 20:20 Last Admin: 06/12/21 20:29 Dose: 92 mg Documented by: Enoxaparin Sodium (Enoxaparin 100 Mg/1 Ml Syringe) 90 mg SUBCUT Q12HR [facility] Last Admin: 06/13/21 04:07 Dose: Not Given Documented by: Heparin Sodium (Porcine) (Heparin Sodium 5,000 Units/Ml Vial) 5,000 units IVPUSH ONETIME ONE; Protocol Stop: 06/12/21 19:47 Last Admin: 06/13/21 04:06 Dose: Not Given Documented by: Sodium Chloride (Normal Saline) 1,000 mls @ 999 mls/hr IV BOLUS ONE Stop: 06/12/21 17:48 Last Admin: 06/12/21 17:33 Dose: 999 mls/hr Documented by: Heparin Sodium/Sodium Chloride (Heparin 25,000 Units In 1/2 Ns 500 Ml) 500 mls @ 25.655 mls/hr IV TITRATE [facility]IM[facility]; Protocol Remdesivir 200 mg/ Sodium (Chloride) 250 mls @ 250 mls/hr IV ONETIME ONE Stop: 06/12/21 20:14 Last Admin: 06/12/21 21:21 Dose: 250 mls/hr Documented by: Iopamidol (Iopamidol 755 Mg/Ml 500 Ml Multipack Bottle) 100 ml IVPUSH ONETIME STA Stop: 06/12/21 18:44 Last Admin: 06/12/21 18:44 Dose: 100 ml Documented by: Ketorolac Tromethamine (Ketorolac 30 Mg/Ml Sdv) 30 mg IVPUSH ONETIME ONE Stop: 06/12/21 16:50 Last Admin: 06/12/21 18:02 Dose: Not Given Documented by: - Exam Physical Findings Comments:: General: Obese elderly male. In no distress. Able to speak in full sentences. CVS: S1S2 appreciated. RRR lungs: Diminished bilaterally with no rales or wheezes. pa: soft, obese, non tender. Bowel sounds present ext: no clubbing, cyanosis or edema neuro: no focal deficits. normal gait psych: stable mood and affect. - Patient Data Lab Results Last 24 hrs: Laboratory Results - last 24 hr 06/12/21 06/12/21 06/12/21 Range/Units 17:24 17:24 17:24 WBC 10.91 (4.0-11.0) K/uL RBC 4.43 L (4.50-5.90) M/uL Hgb 13.3 (13.0-17.0) g/dL Hct 38.4 (38.0-50.0) % MCV 86.7 (80.0-98.0) fL MCH 30.0 (27.0-32.0) pg MCHC 34.6 (31.0-37.0) g/dL RDW Std Deviation 41.5 (28.0-62.0) fl RDW Coeff of Aruna 13 (11.0-15.0) % Plt Count 515 H (150-400) K/uL MPV 10.00 (7.40-12.00) fL Neut % (Auto) 71.5 (48.0-80.0) % Lymph % (Auto) 13.7 L (16.0-40.0) % Coles % (Auto) 11.6 (0.0-15.0) % Eos % (Auto) 2.7 (0.0-7.0) % Baso % (Auto) 0.5 (0.0-1.5) % Neut # (Auto) 7.8 H (1.4-5.7) K/uL Lymph # (Auto) 1.5 (0.6-2.4) K/uL Coles # (Auto) 1.3 H (0.0-0.8) K/uL Eos # (Auto) 0.3 (0.0-0.7) K/uL Baso # (Auto) 0.1 (0.0-0.1) K/uL Add Manual Diff Neutrophils % (Manual) (48.0-80.0) % Lymphocytes % (Manual) (16.0-40.0) % Monocytes % (Manual) (0.0-15.0) % Eosinophils % (Manual) (0.0-7.0) % Nucleated RBC % 0.0 /100WBC Absolute Seg Neuts (1.4-5.7) Lymphocytes # (Manual) (0.6-2.4) Monocytes # (Manual) (0.0-0.8) Eosinophils # (Manual) (0.0-0.7) Nucleated RBCs # 0 K/uL APTT (18.6-31.3) SEC Sodium 137 (136-148) mmol/L Potassium 3.5 (3.5-5.1) mmol/L Chloride 100 (98-107) mmol/L Carbon Dioxide 26.7 (21.0-32.0) mmol/L BUN 13 (7.0-18.0) mg/dL Creatinine 0.9 (0.8-1.3) mg/dL Est Cr Clr Drug Dosing 74.94 mL/min Estimated GFR (MDRD) > 60.0 ml/min Glucose 125 H (74-106) mg/dL Calcium 8.7 (8.5-10.1) mg/dL Total Bilirubin 0.9 (0.2-1.0) mg/dL Direct Bilirubin (0.0-0.5) mg/dL AST 81 H (15-37) IU/L ALT 93 H (14-63) IU/L Alkaline Phosphatase 67 (46-116) U/L Troponin I < 0.050 (0.000-0.056) ng/mL C-Reactive Protein (0.00-0.90) mg/dL B-Natriuretic Peptide 34 (<100) PG/ML Total Protein 7.4 (6.4-8.2) g/dL Albumin 2.1 L (3.4-5.0) g/dL Globulin 5.3 H (2.6-4.0) g/dL Albumin/Globulin Ratio 0.4 L (0.9-1.6) Influenza Type A RNA (NEGATIVE) Influenza Type B RNA (NEGATIVE) SARS-CoV-2 RNA (TIARRA) (NEGATIVE) 06/12/21 06/12/21 06/13/21 Range/Units 17:24 17:42 05:53 WBC 6.75 (4.0-11.0) K/uL RBC 4.26 L (4.50-5.90) M/uL Hgb 12.8 L (13.0-17.0) g/dL Hct 37.2 L (38.0-50.0) % MCV 87.3 (80.0-98.0) fL MCH 30.0 (27.0-32.0) pg MCHC 34.4 (31.0-37.0) g/dL RDW Std Deviation 41.8 (28.0-62.0) fl RDW Coeff of Aruna 13 (11.0-15.0) % Plt Count 562 H (150-400) K/uL MPV 10.30 (7.40-12.00) fL Neut % (Auto) (48.0-80.0) % Lymph % (Auto) (16.0-40.0) % Coles % (Auto) (0.0-15.0) % Eos % (Auto) (0.0-7.0) % Baso % (Auto) (0.0-1.5) % Neut # (Auto) (1.4-5.7) K/uL Lymph # (Auto) (0.6-2.4) K/uL Coles # (Auto) (0.0-0.8) K/uL Eos # (Auto) (0.0-0.7) K/uL Baso # (Auto) (0.0-0.1) K/uL Add Manual Diff YES Neutrophils % (Manual) 75 (48.0-80.0) % Lymphocytes % (Manual) 19 (16.0-40.0) % Monocytes % (Manual) 5 (0.0-15.0) % Eosinophils % (Manual) 1 (0.0-7.0) % Nucleated RBC % 0.0 /100WBC Absolute Seg Neuts 5.1 (1.4-5.7) Lymphocytes # (Manual) 1.3 (0.6-2.4) Monocytes # (Manual) 0.3 (0.0-0.8) Eosinophils # (Manual) 0.1 (0.0-0.7) Nucleated RBCs # 0 K/uL APTT 27.5 (18.6-31.3) SEC Sodium (136-148) mmol/L Potassium (3.5-5.1) mmol/L Chloride (98-107) mmol/L Carbon Dioxide (21.0-32.0) mmol/L BUN (7.0-18.0) mg/dL Creatinine (0.8-1.3) mg/dL Est Cr Clr Drug Dosing mL/min Estimated GFR (MDRD) ml/min Glucose (74-106) mg/dL Calcium (8.5-10.1) mg/dL Total Bilirubin (0.2-1.0) mg/dL Direct Bilirubin (0.0-0.5) mg/dL AST (15-37) IU/L ALT (14-63) IU/L Alkaline Phosphatase (46-116) U/L Troponin I (0.000-0.056) ng/mL C-Reactive Protein (0.00-0.90) mg/dL B-Natriuretic Peptide (<100) PG/ML Total Protein (6.4-8.2) g/dL Albumin (3.4-5.0) g/dL Globulin (2.6-4.0) g/dL Albumin/Globulin Ratio (0.9-1.6) Influenza Type A RNA NEGATIVE (NEGATIVE) Influenza Type B RNA NEGATIVE (NEGATIVE) SARS-CoV-2 RNA (TIARRA) POSITIVE H (NEGATIVE) 06/13/21 06/13/21 Range/Units 05:53 05:53 WBC (4.0-11.0) K/uL RBC (4.50-5.90) M/uL Hgb (13.0-17.0) g/dL Hct (38.0-50.0) % MCV (80.0-98.0) fL MCH (27.0-32.0) pg MCHC (31.0-37.0) g/dL RDW Std Deviation (28.0-62.0) fl RDW Coeff of Aruna (11.0-15.0) % Plt Count (150-400) K/uL MPV (7.40-12.00) fL Neut % (Auto) (48.0-80.0) % Lymph % (Auto) (16.0-40.0) % Coles % (Auto) (0.0-15.0) % Eos % (Auto) (0.0-7.0) % Baso % (Auto) (0.0-1.5) % Neut # (Auto) (1.4-5.7) K/uL Lymph # (Auto) (0.6-2.4) K/uL Coles # (Auto) (0.0-0.8) K/uL Eos # (Auto) (0.0-0.7) K/uL Baso # (Auto) (0.0-0.1) K/uL Add Manual Diff Neutrophils % (Manual) (48.0-80.0) % Lymphocytes % (Manual) (16.0-40.0) % Monocytes % (Manual) (0.0-15.0) % Eosinophils % (Manual) (0.0-7.0) % Nucleated RBC % /100WBC Absolute Seg Neuts (1.4-5.7) Lymphocytes # (Manual) (0.6-2.4) Monocytes # (Manual) (0.0-0.8) Eosinophils # (Manual) (0.0-0.7) Nucleated RBCs # K/uL APTT (18.6-31.3) SEC Sodium 141 (136-148) mmol/L Potassium 4.8 (3.5-5.1) mmol/L Chloride 106 (98-107) mmol/L Carbon Dioxide 27.0 (21.0-32.0) mmol/L BUN 13 (7.0-18.0) mg/dL Creatinine 0.9 (0.8-1.3) mg/dL Est Cr Clr Drug Dosing 74.94 mL/min Estimated GFR (MDRD) > 60.0 ml/min Glucose 179 H (74-106) mg/dL Calcium 8.8 (8.5-10.1) mg/dL Total Bilirubin 0.4 (0.2-1.0) mg/dL Direct Bilirubin 0.20 (0.0-0.5) mg/dL AST 53 H (15-37) IU/L ALT 80 H (14-63) IU/L Alkaline Phosphatase 66 (46-116) U/L Troponin I (0.000-0.056) ng/mL C-Reactive Protein 12.10 H (0.00-0.90) mg/dL B-Natriuretic Peptide (<100) PG/ML Total Protein 7.1 (6.4-8.2) g/dL Albumin 1.9 L (3.4-5.0) g/dL Globulin 5.2 H (2.6-4.0) g/dL Albumin/Globulin Ratio 0.4 L (0.9-1.6) Influenza Type A RNA (NEGATIVE) Influenza Type B RNA (NEGATIVE) SARS-CoV-2 RNA (TIARRA) (NEGATIVE) Result Diagrams: 06/13/21 05:53 06/13/21 05:53 Sepsis Event Note - Evaluation Sepsis Screening Result: No Definite Risk - Focused Exam Vital Signs: Vital Signs Temp Pulse Resp BP Pulse Ox 06/13/21 11:01 96.8 F L 88 20 112/63 91 L 06/13/21 08:20 22 H 89 L 06/13/21 08:06 96.6 F L 86 22 H 123/75 85 L - Problem List & Annotations (1) Acute respiratory failure SNOMED Code(s): 48820961 Code(s): J96.00 - ACUTE RESPIRATORY FAILURE, UNSP W HYPOXIA OR HYPERCAPNIA Status: Acute Current Visit: Yes (2) COVID-19 virus infection SNOMED Code(s): 375303435 Code(s): U07.1 - COVID-19 Status: Acute Current Visit: Yes (3) Pulmonary embolism SNOMED Code(s): 07596863 Code(s): I26.99 - OTHER PULMONARY EMBOLISM WITHOUT ACUTE COR PULMONALE Status: Acute Current Visit: Yes Qualifiers: Pulmonary embolism type: unspecified Chronicity: acute Acute cor pulmonale presence: without acute cor pulmonale Qualified Code(s): I26.99 - Other pulmonary embolism without acute cor pulmonale (4) JUDAH on CPAP SNOMED Code(s): 34216418 Code(s): G47.33 - OBSTRUCTIVE SLEEP APNEA (ADULT) (PEDIATRIC); Z99.89 - DEPENDENCE ON OTHER ENABLING MACHINES AND DEVICES Status: Acute Current Visit: Yes (5) Obesity (BMI 30.0-34.9) SNOMED Code(s): 488885987324318 Code(s): E66.9 - OBESITY, UNSPECIFIED Status: Acute Current Visit: Yes (6) Generalized weakness SNOMED Code(s): 33071690 Code(s): R53.1 - WEAKNESS Status: Acute Current Visit: Yes - Problem List Review Problem List Initiated/Reviewed/Updated: Yes - My Orders Last 24 Hours: My Active Orders 06/12/21 20:42 Resuscitation Status Routine 06/12/21 23:57 RT Incentive Spirometry [RC] Q1HWA 11/24/21 Breakfast Regular Diet [DIET] Regular Diet [DIET] 06/13/21 07:12 Albuterol [Ventolin HFA] See Dose Instructions INH Q2H PRN 06/13/21 07:12 Patient Status [ADT] Routine Communication Order [RC] DAILY Oxygen Therapy [RC] PRN Oxygen Therapy [RC] PRN Pulse Oximetry [RC] CONTINUOUS RT Aerosol Therapy [RC] ASDIRECTED Up ad Judit [RC] ASDIRECTED VTE/DVT Education [RC] PER UNIT ROUTINE VTE/DVT Education [RC] PER UNIT ROUTINE Vital Signs [RC] Q4H Vital Signs [RC] Q4H 06/13/21 09:00 Enoxaparin [Lovenox] 90 mg SUBCUT Q12HR 06/13/21 10:30 Baricitinib [Olumiant] 4 mg PO DAILY 06/13/21 12:00 Albuterol/Ipratropium [DuoNeb 3.0-0.5 MG/3 ML] 3 ml NEB Q6HRRT 06/13/21 21:00 Remdesivir 100 mg Sodium Chloride 0.9% [Normal Saline AdvBag] 100 ml IV Q24H dexAMETHasone 6 mg PO Q24H 06/14/21 05:30 BILIRUBIN DIRECT [CHEM] DAILY CBC WITH AUTO DIFF [HEME] DAILY COMPREHENSIVE METABOLIC PN,CMP [CHEM] DAILY 06/14/21 07:12 BILIRUBIN DIRECT [CHEM] DAILY COMPREHENSIVE METABOLIC PN,CMP [CHEM] DAILY 06/15/21 05:30 BILIRUBIN DIRECT [CHEM] DAILY COMPREHENSIVE METABOLIC PN,CMP [CHEM] DAILY 06/15/21 07:12 BILIRUBIN DIRECT [CHEM] DAILY COMPREHENSIVE METABOLIC PN,CMP [CHEM] DAILY 06/16/21 07:12 BILIRUBIN DIRECT [CHEM] DAILY COMPREHENSIVE METABOLIC PN,CMP [CHEM] DAILY 06/17/21 07:12 BILIRUBIN DIRECT [CHEM] DAILY COMPREHENSIVE METABOLIC PN,CMP [CHEM] DAILY - Assessment Assessment:: Acute respiratory failure due to Covid 19 pneumonia Continue with Decadron x 10 days, duoneb, incentive spirometer, encourage proning. Pt was started on Remdesivir in the ED. Will complete the 5 days course. I will start him on Baricitinib. anticoagulation with lovenox oxygen supplementation and wean down as tolerated. Pulmonary embolism on lovenox 1 mg/kg SQ Q 12 JUDAH on CPAP at home Will have bring in his home CPAP device. Obesity Pt will need lifestyle modification changes after this acute hospitalization Generalized weakness Consult PT/OT
[2021-06-13 17:05] LABS: BLOOD UREA NITROGEN,BUN 18 mg/dL (7.0-18.0); CARBON DIOXIDE,CO2 25.4 mmol/L (21.0-32.0); CHLORIDE,CL 104 mmol/L (98-107); GLUCOSE RANDOM 168 mg/dL (74-106); POTASSIUM,K 4.4 mmol/L (3.5-5.1); SODIUM,NA 138 mmol/L (136-148)
[2021-06-13] MEDS ORDERED: Codeine/guaiFENesin 10-100 MG/5 ML Syrup 5 ML Cup PO PRN (19:56)
[2021-06-13] MEDS: Dexamethasone 4 MG Tab PO SCH (20:31)
[2021-06-13] MEDS: REMDESIVIR 100 MG in Sodium Chloride 0.9% 100 ML IV SCH (20:32)
[2021-06-13] MEDS: Benzonatate 100 MG Cap PO SCH (21:57)
[2021-06-14] MEDS: Albuterol/Ipratropium 3.0-0.5 MG/3 ML Neb Soln NEB SCH ×5 (00:19→23:59)
[2021-06-14] MEDS: Benzonatate 100 MG Cap PO SCH ×3 (05:14→21:19)
[2021-06-14 07:40] LABS: BLOOD UREA NITROGEN,BUN 19 mg/dL (7.0-18.0); CARBON DIOXIDE,CO2 23.8 mmol/L (21.0-32.0); CHLORIDE,CL 106 mmol/L (98-107); GLUCOSE RANDOM 198 mg/dL (74-106); POTASSIUM,K 4.2 mmol/L (3.5-5.1); SODIUM,NA 139 mmol/L (136-148)
[2021-06-14] MEDS: Enoxaparin 100 MG/1 ML Syringe SUBCUT SCH ×2 (08:34→21:20)
[2021-06-14] MEDS ORDERED: guaiFENesin/Dextromethorphan 100-10 MG/5 ML Soln 10 ML Cup PO PRN (10:51)
--- NOTE | 2021-06-14 10:55 | PCM.PN ---
- General Info Date of Service: 06/14/21 Subjective Update: Pt slept with his home CPAP device last night. He feels good this morning. He is able to maintain his oxygen sats > 90% on 1-2 L NC. He is doing over 2000 cc on the incentive spirometer - Patient Data Vitals - Most Recent: Last Vital Signs Temp 97.7 F 06/14/21 08:00 Pulse 80 06/14/21 08:00 Resp 19 06/14/21 08:00 BP 132/68 06/14/21 08:00 Pulse Ox 95 06/14/21 08:00 Weight - Most Recent: 203 lb 12.8 oz I&O - Last 24 Hours: Intake & Output 06/13/21 06/14/21 06/14/21 22:59 06:59 14:59 Intake Total 1200 580 Balance 1200 580 Lab Results Last 24 Hours: Laboratory Results - last 24 hr 06/13/21 06/14/21 06/14/21 Range/Units 16:20 06:00 06:00 WBC 11.38 H (4.0-11.0) K/uL RBC 3.92 L (4.50-5.90) M/uL Hgb 11.5 L (13.0-17.0) g/dL Hct 34.5 L (38.0-50.0) % MCV 88.0 (80.0-98.0) fL MCH 29.3 (27.0-32.0) pg MCHC 33.3 (31.0-37.0) g/dL RDW Std Deviation 42.5 (28.0-62.0) fl RDW Coeff of Aruna 13 (11.0-15.0) % Plt Count 590 H (150-400) K/uL MPV 10.60 (7.40-12.00) fL Add Manual Diff YES Neutrophils % (Manual) 83 H (48.0-80.0) % Band Neutrophils % 2 % Lymphocytes % (Manual) 10 L (16.0-40.0) % Monocytes % (Manual) 5 (0.0-15.0) % Nucleated RBC % 0.0 /100WBC Absolute Seg Neuts 9.4 H (1.4-5.7) Band Neutrophils # 0.2 Lymphocytes # (Manual) 1.1 (0.6-2.4) Monocytes # (Manual) 0.6 (0.0-0.8) Nucleated RBCs # 0 K/uL Sodium 138 139 (136-148) mmol/L Potassium 4.4 4.2 (3.5-5.1) mmol/L Chloride 104 106 (98-107) mmol/L Carbon Dioxide 25.4 23.8 (21.0-32.0) mmol/L BUN 18 19 H (7.0-18.0) mg/dL Creatinine 0.9 1.0 (0.8-1.3) mg/dL Est Cr Clr Drug Dosing 74.94 67.45 mL/min Estimated GFR (MDRD) > 60.0 > 60.0 ml/min Glucose 168 H 198 H (74-106) mg/dL Calcium 9.0 8.7 (8.5-10.1) mg/dL Total Bilirubin 0.4 (0.2-1.0) mg/dL Direct Bilirubin 0.10 (0.0-0.5) mg/dL AST 60 H (15-37) IU/L ALT 87 H (14-63) IU/L Alkaline Phosphatase 61 (46-116) U/L C-Reactive Protein 9.20 H (0.00-0.90) mg/dL Total Protein 6.5 (6.4-8.2) g/dL Albumin 1.9 L (3.4-5.0) g/dL Globulin 4.6 H (2.6-4.0) g/dL Albumin/Globulin Ratio 0.4 L (0.9-1.6) Med Orders - Current: Current Medications Albuterol (Albuterol 8 Gm Inhaler) 0 gm INH Q2H PRN PRN Reason: Dyspnea Albuterol/Ipratropium (Albuterol/Ipratropium 3.0-0.5 Mg/3 Ml Neb Soln) 3 ml NEB Q6HRRT [facility] Last Admin: 06/14/21 08:21 Dose: 3 ml Documented by: Baricitinib (Baricitinib 2 Mg Tab) 4 mg PO DAILY [facility] Last Admin: 06/14/21 08:33 Dose: 4 mg Documented by: Benzonatate (Benzonatate 100 Mg Cap) 100 mg PO TID [facility] Last Admin: 06/14/21 05:14 Dose: 100 mg Documented by: Dexamethasone (Dexamethasone 4 Mg Tab) 6 mg PO Q24H [facility] Last Admin: 06/13/21 20:31 Dose: 6 mg Documented by: Enoxaparin Sodium (Enoxaparin 100 Mg/1 Ml Syringe) 90 mg SUBCUT Q12HR [facility] Last Admin: 06/14/21 08:34 Dose: 90 mg Documented by: Guaifenesin/Codeine Phosphate (Codeine/Guaifenesin 10-100 Mg/5 Ml Syrup 5 Ml Cup) 5 ml PO Q4H PRN PRN Reason: Cough Remdesivir 100 mg/ Sodium (Chloride) 100 mls @ 100 mls/hr IV Q24H [facility] Stop: 06/16/21 21:59 Last Admin: 06/13/21 20:32 Dose: 100 mls/hr Documented by: Discontinued Medications Acetaminophen (Acetaminophen 500 Mg Tab) 1,000 mg PO ONETIME ONE Stop: 06/12/21 16:50 Last Admin: 06/12/21 18:02 Dose: Not Given Documented by: Albuterol/Ipratropium (Albuterol/Ipratropium 3.0-0.5 Mg/3 Ml Neb Soln) 3 ml NEB Q4HRRT [facility] Last Admin: 06/13/21 10:46 Dose: Not Given Documented by: Dexamethasone (Dexamethasone 10 Mg/Ml Sdv) 10 mg IVPUSH ONETIME ONE Stop: 06/12/21 20:13 Last Admin: 06/12/21 20:21 Dose: 10 mg Documented by: Enoxaparin Sodium (Enoxaparin 100 Mg/1 Ml Syringe) 92 mg SUBCUT ONETIME ONE Stop: 06/12/21 20:20 Last Admin: 06/12/21 20:29 Dose: 92 mg Documented by: Enoxaparin Sodium (Enoxaparin 100 Mg/1 Ml Syringe) 90 mg SUBCUT Q12HR [facility] Last Admin: 06/13/21 04:07 Dose: Not Given Documented by: Heparin Sodium (Porcine) (Heparin Sodium 5,000 Units/Ml Vial) 5,000 units IVPUSH ONETIME ONE; Protocol Stop: 06/12/21 19:47 Last Admin: 06/13/21 04:06 Dose: Not Given Documented by: Sodium Chloride (Normal Saline) 1,000 mls @ 999 mls/hr IV BOLUS ONE Stop: 06/12/21 17:48 Last Admin: 06/12/21 17:33 Dose: 999 mls/hr Documented by: Heparin Sodium/Sodium Chloride (Heparin 25,000 Units In 1/2 Ns 500 Ml) 500 mls @ 25.655 mls/hr IV TITRATE JIMY; Protocol Remdesivir 200 mg/ Sodium (Chloride) 250 mls @ 250 mls/hr IV ONETIME ONE Stop: 06/12/21 20:14 Last Admin: 06/12/21 21:21 Dose: 250 mls/hr Documented by: Iopamidol (Iopamidol 755 Mg/Ml 500 Ml Multipack Bottle) 100 ml IVPUSH ONETIME STA Stop: 06/12/21 18:44 Last Admin: 06/12/21 18:44 Dose: 100 ml Documented by: Ketorolac Tromethamine (Ketorolac 30 Mg/Ml Sdv) 30 mg IVPUSH ONETIME ONE Stop: 06/12/21 16:50 Last Admin: 06/12/21 18:02 Dose: Not Given Documented by: - Exam Physical Findings Comments:: General: Obese elderly male. In no distress. Able to speak in full sentences. CVS: S1S2 appreciated. RRR lungs: Diminished bilaterally with no rales or wheezes. pa: soft, obese, non tender. Bowel sounds present ext: no clubbing, cyanosis or edema neuro: no focal deficits. normal gait psych: stable mood and affect. - Patient Data Lab Results Last 24 hrs: Laboratory Results - last 24 hr 06/13/21 06/14/21 06/14/21 Range/Units 16:20 06:00 06:00 WBC 11.38 H (4.0-11.0) K/uL RBC 3.92 L (4.50-5.90) M/uL Hgb 11.5 L (13.0-17.0) g/dL Hct 34.5 L (38.0-50.0) % MCV 88.0 (80.0-98.0) fL MCH 29.3 (27.0-32.0) pg MCHC 33.3 (31.0-37.0) g/dL RDW Std Deviation 42.5 (28.0-62.0) fl RDW Coeff of Aruna 13 (11.0-15.0) % Plt Count 590 H (150-400) K/uL MPV 10.60 (7.40-12.00) fL Add Manual Diff YES Neutrophils % (Manual) 83 H (48.0-80.0) % Band Neutrophils % 2 % Lymphocytes % (Manual) 10 L (16.0-40.0) % Monocytes % (Manual) 5 (0.0-15.0) % Nucleated RBC % 0.0 /100WBC Absolute Seg Neuts 9.4 H (1.4-5.7) Band Neutrophils # 0.2 Lymphocytes # (Manual) 1.1 (0.6-2.4) Monocytes # (Manual) 0.6 (0.0-0.8) Nucleated RBCs # 0 K/uL Sodium 138 139 (136-148) mmol/L Potassium 4.4 4.2 (3.5-5.1) mmol/L Chloride 104 106 (98-107) mmol/L Carbon Dioxide 25.4 23.8 (21.0-32.0) mmol/L BUN 18 19 H (7.0-18.0) mg/dL Creatinine 0.9 1.0 (0.8-1.3) mg/dL Est Cr Clr Drug Dosing 74.94 67.45 mL/min Estimated GFR (MDRD) > 60.0 > 60.0 ml/min Glucose 168 H 198 H (74-106) mg/dL Calcium 9.0 8.7 (8.5-10.1) mg/dL Total Bilirubin 0.4 (0.2-1.0) mg/dL Direct Bilirubin 0.10 (0.0-0.5) mg/dL AST 60 H (15-37) IU/L ALT 87 H (14-63) IU/L Alkaline Phosphatase 61 (46-116) U/L C-Reactive Protein 9.20 H (0.00-0.90) mg/dL Total Protein 6.5 (6.4-8.2) g/dL Albumin 1.9 L (3.4-5.0) g/dL Globulin 4.6 H (2.6-4.0) g/dL Albumin/Globulin Ratio 0.4 L (0.9-1.6) Result Diagrams: 06/14/21 06:00 06/14/21 06:00 Sepsis Event Note - Evaluation Sepsis Screening Result: No Definite Risk - Focused Exam Vital Signs: Vital Signs Temp Pulse Resp BP Pulse Ox Pulse Ox 06/14/21 08:00 97.7 F 80 19 132/68 95 95 06/14/21 05:18 96.8 F L 85 16 126/84 99 06/14/21 00:00 97.0 F 79 16 115/68 95 - Problem List & Annotations (1) Acute respiratory failure SNOMED Code(s): 80032262 Code(s): J96.00 - ACUTE RESPIRATORY FAILURE, UNSP W HYPOXIA OR HYPERCAPNIA Status: Acute Current Visit: Yes (2) COVID-19 virus infection SNOMED Code(s): 934611833 Code(s): U07.1 - COVID-19 Status: Acute Current Visit: Yes (3) Pulmonary embolism SNOMED Code(s): 90927391 Code(s): I26.99 - OTHER PULMONARY EMBOLISM WITHOUT ACUTE COR PULMONALE Status: Acute Current Visit: Yes Qualifiers: Pulmonary embolism type: unspecified Chronicity: acute Acute cor pulmonale presence: without acute cor pulmonale Qualified Code(s): I26.99 - Other pulmonary embolism without acute cor pulmonale (4) JUDAH on CPAP SNOMED Code(s): 72360337 Code(s): G47.33 - OBSTRUCTIVE SLEEP APNEA (ADULT) (PEDIATRIC); Z99.89 - DEPENDENCE ON OTHER ENABLING MACHINES AND DEVICES Status: Acute Current Visit: Yes (5) Obesity (BMI 30.0-34.9) SNOMED Code(s): 199225047200601 Code(s): E66.9 - OBESITY, UNSPECIFIED Status: Acute Current Visit: Yes (6) Generalized weakness SNOMED Code(s): 57412609 Code(s): R53.1 - WEAKNESS Status: Acute Current Visit: Yes - Problem List Review Problem List Initiated/Reviewed/Updated: Yes - My Orders Last 24 Hours: My Active Orders 06/13/21 10:30 Baricitinib [Olumiant] 4 mg PO DAILY 06/13/21 12:00 Albuterol/Ipratropium [DuoNeb 3.0-0.5 MG/3 ML] 3 ml NEB Q6HRRT 06/13/21 16:06 OT Evaluation and Treatment [CONS] Routine PT Evaluation and Treatment [CONS] Routine 06/13/21 19:56 Codeine/guaiFENesin [Robitussin AC] 5 ml PO Q4H PRN 06/13/21 21:00 Remdesivir 100 mg Sodium Chloride 0.9% [Normal Saline AdvBag] 100 ml IV Q24H dexAMETHasone 6 mg PO Q24H 06/13/21 22:00 Benzonatate [Tessalon Perles] 100 mg PO TID 06/15/21 05:30 BILIRUBIN DIRECT [CHEM] DAILY COMPREHENSIVE METABOLIC PN,CMP [CHEM] DAILY 06/15/21 07:12 BILIRUBIN DIRECT [CHEM] DAILY COMPREHENSIVE METABOLIC PN,CMP [CHEM] DAILY 06/16/21 07:12 BILIRUBIN DIRECT [CHEM] DAILY COMPREHENSIVE METABOLIC PN,CMP [CHEM] DAILY 06/17/21 07:12 BILIRUBIN DIRECT [CHEM] DAILY COMPREHENSIVE METABOLIC PN,CMP [CHEM] DAILY - Assessment Assessment:: Acute respiratory failure due to Covid 19 pneumonia Improving. Continue with Decadron x 10 days, duoneb, incentive spirometer, encourage proning as needed. Pt is on Remdesivir and Baricitinib. anticoagulation with lovenox Continue to wean off oxygen. Pulmonary embolism on lovenox 1 mg/kg SQ Q 12 JUDAH on CPAP at home Continue with Q HS CPAP Obesity Pt will need lifestyle modification changes after this acute hospitalization Generalized weakness Consult PT/OT Disposition likely DC home tomorrow.
[2021-06-14] MEDS ORDERED: Benzonatate 100 MG Cap PO PRN (11:00)
[2021-06-14] MEDS: Dexamethasone 4 MG Tab PO SCH (21:19)
[2021-06-14] MEDS: REMDESIVIR 100 MG in Sodium Chloride 0.9% 100 ML IV SCH (21:23)
[2021-06-15] MEDS: Benzonatate 100 MG Cap PO SCH (05:42)
[2021-06-15] MEDS: Albuterol/Ipratropium 3.0-0.5 MG/3 ML Neb Soln NEB SCH (05:42)
[2021-06-15 06:46] LABS: BLOOD UREA NITROGEN,BUN 16 mg/dL (7.0-18.0); CARBON DIOXIDE,CO2 24.2 mmol/L (21.0-32.0); CHLORIDE,CL 104 mmol/L (98-107); GLUCOSE RANDOM 207 mg/dL (74-106); POTASSIUM,K 4.9 mmol/L (3.5-5.1); SODIUM,NA 137 mmol/L (136-148)
[2021-06-15] MEDS: Enoxaparin 100 MG/1 ML Syringe SUBCUT SCH (08:30)
--- NOTE | 2021-06-15 10:18 | PCM.DCSUM1 ---
Discharge Summary - Hospital Course Free Text/Narrative:: t Diagnosis: Stroke: No - Discharge Data Discharge Date: 06/15/21 Discharge Disposition: Home, Self-Care 01 Condition: Stable - Referral to Home Health Primary Care Physician: PCP None - Discharge Diagnosis/Problem(s) (1) Acute respiratory failure SNOMED Code(s): 71570853 ICD Code: J96.00 - ACUTE RESPIRATORY FAILURE, UNSP W HYPOXIA OR HYPERCAPNIA Status: Acute (2) COVID-19 virus infection SNOMED Code(s): 672183251 ICD Code: U07.1 - COVID-19 Status: Acute (3) Pulmonary embolism SNOMED Code(s): 36190439 ICD Code: I26.99 - OTHER PULMONARY EMBOLISM WITHOUT ACUTE COR PULMONALE Status: Acute Qualifiers: Pulmonary embolism type: unspecified Chronicity: acute Acute cor pulmonale presence: without acute cor pulmonale Qualified Code(s): I26.99 - Other pulmonary embolism without acute cor pulmonale (4) JUDAH on CPAP SNOMED Code(s): 01104402 ICD Code: G47.33 - OBSTRUCTIVE SLEEP APNEA (ADULT) (PEDIATRIC); Z99.89 - DEPENDENCE ON OTHER ENABLING MACHINES AND DEVICES Status: Acute (5) Obesity (BMI 30.0-34.9) SNOMED Code(s): 856294419646100 ICD Code: E66.9 - OBESITY, UNSPECIFIED Status: Acute (6) Generalized weakness SNOMED Code(s): 08615915 ICD Code: R53.1 - WEAKNESS Status: Acute - Patient Summary/Data Consults: Consultations 06/13/21 16:06 OT Evaluation and Treatment [CONS] Routine PT Evaluation and Treatment [CONS] Routine - Discharge Plan *PRESCRIPTION DRUG MONITORING PROGRAM REVIEWED*: No *COPY OF PRESCRIPTION DRUG MONITORING REPORT IN PATIENT CHANTAL: No Prescriptions/Med Rec: dexAMETHasone [Dexamethasone] 6 mg PO DAILY 6 Days #6 tab Benzonatate [Tessalon Perles] 100 mg PO Q8H PRN #30 cap PRN Reason: Cough Rivaroxaban [Xarelto] 15 mg PO BID 21 Days #42 tab Rivaroxaban [Xarelto] 20 mg PO DAILY 150 Days tablet Home Medications: Home Meds Benzonatate [Tessalon Perles] 100 mg PO Q8H PRN #30 cap 06/15/21 [Rx] Rivaroxaban [Xarelto] 15 mg PO BID 21 Days #42 tab 06/15/21 [Rx] Rivaroxaban [Xarelto] 20 mg PO DAILY 150 Days tablet 06/15/21 [Rx] dexAMETHasone [Dexamethasone] 6 mg PO DAILY 6 Days #6 tab 06/15/21 [Rx] dexAMETHasone [Dexamethasone] 6 mg PO Q24H #6 tablet 06/15/21 [Rx] Patient Handouts: Hypoxia, COVID-19 Frequently Asked Questions, COVID-19 Vaccine Information, Rivaroxaban oral tablets, Pulmonary Embolism, COVID-19: How to Protect Yourself and Others - CDC, Acute Respiratory Failure, Adult, Dexamethasone tablets, Benzonatate capsules Referrals: Joana Rivera PA [Physician [employer]] - 06/29/21 9:00 am - Discharge Summary/Plan Comment DC Time >30 min.: Yes Total # of Minutes for Discharge Time: 35 mins Discharge Summary/Plan Comment: Mr. Carlson is a 70-year-old obese male with a h/o JUDAH who was admitted to the hospital with COVID 19 infection and a pulmonary embolism. He was treated with supplemental oxygen, Dexamethasone, Baricitinib, incentive spirometry and proning. He progressed rather quickly and was weaned off the supplemental oxygen. He wore is nocturnal CPAP which helped with maintaining his oxygen sat > 90% during the night. He was later discharged home on room air in a stable condition. Activity: as tolerated Diet: Regular Follow up with PCP in 1-2 wks Discharge time is 35 minutes. - Patient Data Vitals - Most Recent: Last Vital Signs Temp 97.2 F 06/15/21 07:50 Pulse 95 06/15/21 07:50 Resp 19 06/15/21 07:50 BP 140/71 06/15/21 07:50 Pulse Ox 91 L 06/15/21 08:00 Weight - Most Recent: 203 lb 12.8 oz I&O - Last 24 hours: Intake & Output 06/14/21 06/15/21 06/15/21 22:59 06:59 14:59 Intake Total 850 350 Balance 850 350 Lab Results - Last 24 hrs: Laboratory Results - last 24 hr 06/15/21 Range/Units 05:33 Sodium 137 (136-148) mmol/L Potassium 4.9 (3.5-5.1) mmol/L Chloride 104 (98-107) mmol/L Carbon Dioxide 24.2 (21.0-32.0) mmol/L BUN 16 (7.0-18.0) mg/dL Creatinine 0.9 (0.8-1.3) mg/dL Est Cr Clr Drug Dosing 74.94 mL/min Estimated GFR (MDRD) > 60.0 ml/min Glucose 207 H (74-106) mg/dL Calcium 8.5 (8.5-10.1) mg/dL Total Bilirubin 0.3 (0.2-1.0) mg/dL Direct Bilirubin 0.10 (0.0-0.5) mg/dL AST 81 H (15-37) IU/L ALT 103 H (14-63) IU/L Alkaline Phosphatase 56 (46-116) U/L Total Protein 6.4 (6.4-8.2) g/dL Albumin 2.0 L (3.4-5.0) g/dL Globulin 4.4 H (2.6-4.0) g/dL Albumin/Globulin Ratio 0.5 L (0.9-1.6) Med Orders - Current: Current Medications Albuterol (Albuterol 8 Gm Inhaler) 0 gm INH Q2H PRN PRN Reason: Dyspnea Albuterol/Ipratropium (Albuterol/Ipratropium 3.0-0.5 Mg/3 Ml Neb Soln) 3 ml NEB Q6HRRT [facility] Last Admin: 06/15/21 05:42 Dose: 3 ml Documented by: Baricitinib (Baricitinib 2 Mg Tab) 4 mg PO DAILY [facility] Last Admin: 06/15/21 08:31 Dose: 4 mg Documented by: Benzonatate (Benzonatate 100 Mg Cap) 100 mg PO TID [facility] Last Admin: 06/15/21 05:42 Dose: 100 mg Documented by: Benzonatate (Benzonatate 100 Mg Cap) 100 mg PO Q8H PRN PRN Reason: Cough Dexamethasone (Dexamethasone 4 Mg Tab) 6 mg PO Q24H [facility] Last Admin: 06/14/21 21:19 Dose: 6 mg Documented by: Enoxaparin Sodium (Enoxaparin 100 Mg/1 Ml Syringe) 90 mg SUBCUT Q12HR [facility] Last Admin: 06/15/21 08:30 Dose: 90 mg Documented by: Guaifenesin/Codeine Phosphate (Codeine/Guaifenesin 10-100 Mg/5 Ml Syrup 5 Ml Cup) 5 ml PO Q4H PRN PRN Reason: Cough Guaifenesin/Dextromethorphan (Guaifenesin/Dextromethorphan 100-10 Mg/5 Ml Soln 10 Ml Cup) 10 ml PO Q4H PRN PRN Reason: Cough Remdesivir 100 mg/ Sodium (Chloride) 100 mls @ 100 mls/hr IV Q24H [facility] Stop: 06/16/21 21:59 Last Admin: 06/14/21 21:23 Dose: 100 mls/hr Documented by: Discontinued Medications Acetaminophen (Acetaminophen 500 Mg Tab) 1,000 mg PO ONETIME ONE Stop: 06/12/21 16:50 Last Admin: 06/12/21 18:02 Dose: Not Given Documented by: Albuterol/Ipratropium (Albuterol/Ipratropium 3.0-0.5 Mg/3 Ml Neb Soln) 3 ml NEB Q4HRRT [facility] Last Admin: 06/13/21 10:46 Dose: Not Given Documented by: Dexamethasone (Dexamethasone 10 Mg/Ml Sdv) 10 mg IVPUSH ONETIME ONE Stop: 06/12/21 20:13 Last Admin: 06/12/21 20:21 Dose: 10 mg Documented by: Enoxaparin Sodium (Enoxaparin 100 Mg/1 Ml Syringe) 92 mg SUBCUT ONETIME ONE Stop: 06/12/21 20:20 Last Admin: 06/12/21 20:29 Dose: 92 mg Documented by: Enoxaparin Sodium (Enoxaparin 100 Mg/1 Ml Syringe) 90 mg SUBCUT Q12HR [facility] Last Admin: 06/13/21 04:07 Dose: Not Given Documented by: Heparin Sodium (Porcine) (Heparin Sodium 5,000 Units/Ml Vial) 5,000 units IVPUSH ONETIME ONE; Protocol Stop: 06/12/21 19:47 Last Admin: 06/13/21 04:06 Dose: Not Given Documented by: Sodium Chloride (Normal Saline) 1,000 mls @ 999 mls/hr IV BOLUS ONE Stop: 06/12/21 17:48 Last Admin: 06/12/21 17:33 Dose: 999 mls/hr Documented by: Heparin Sodium/Sodium Chloride (Heparin 25,000 Units In 1/2 Ns 500 Ml) 500 mls @ 25.655 mls/hr IV TITRATE JIMY; Protocol Remdesivir 200 mg/ Sodium (Chloride) 250 mls @ 250 mls/hr IV ONETIME ONE Stop: 06/12/21 20:14 Last Admin: 06/12/21 21:21 Dose: 250 mls/hr Documented by: Iopamidol (Iopamidol 755 Mg/Ml 500 Ml Multipack Bottle) 100 ml IVPUSH ONETIME STA Stop: 06/12/21 18:44 Last Admin: 06/12/21 18:44 Dose: 100 ml Documented by: Ketorolac Tromethamine (Ketorolac 30 Mg/Ml Sdv) 30 mg IVPUSH ONETIME ONE Stop: 06/12/21 16:50 Last Admin: 06/12/21 18:02 Dose: Not Given Documented by:
== END 2021-06-15 11:00 | disposition home or self-care (01) | DRG 177 ==
LOC: MW.ED 13:52 → MW.MS 20:20
PROVIDERS: ADMIT Hospitalist; ATTEND Hospitalist
PROC: XW033E5 Introduction of Remdesivir Anti-infective into Peripheral Vein, Percutaneous Approach, New Technology Group 5 (ICD-10-PCS; principal; 2021-06-12)
PROC: XW0DXM6 Introduction of Baricitinib into Mouth and Pharynx, External Approach, New Technology Group 6 (ICD-10-PCS; 2021-06-12)
PROC: 3E0333Z Introduction of Anti-inflammatory into Peripheral Vein, Percutaneous Approach (ICD-10-PCS; 2021-06-12)
PROC: 3E0DX3Z Introduction of Anti-inflammatory into Mouth and Pharynx, External Approach (ICD-10-PCS; 2021-06-13)
DX: U07.1 COVID-19 (principal); J96.01 Acute respiratory failure with hypoxia; I26.99 Other pulmonary embolism without acute cor pulmonale; J12.82 Pneumonia due to coronavirus disease 2019; G47.33 Obstructive sleep apnea (adult) (pediatric); E66.9 Obesity, unspecified; H54.7 Unspecified visual loss; Z20.822 Contact with and (suspected) exposure to COVID-19; Z79.01 Long term (current) use of anticoagulants; Z79.899 Other long term (current) drug therapy; Z99.81 Dependence on supplemental oxygen; Z99.89 Dependence on other enabling machines and devices; Z87.891 Personal history of nicotine dependence; Z68.36 Body mass index [BMI] 36.0-36.9, adult
CPT/HCPCS: 0240U; 36415; 71275; 80048; 80053; 82248; 83880; 84484; 85025; 85730; 86140; 93005; 94640; 96374; 97165; 99285; A9270-GY; J1100; J1650; J7030; J7050; J7620-GY; J8540; Q9967